=== PATIENT | female | born 1970 | race Two or more races ===

== ENCOUNTER 2022-08-28 23:15 | Emergency (ER) | payer OTHER ==
[~2022-08-28] VITALS: Ht 152.4 cm; Wt 60.8 kg
[2022-08-29] MEDS ORDERED: ALBUTEROL2.5 MG/3 M IH (02:18)
[2022-08-29] MEDS ORDERED: ZYNCOF 20-400120 ML PO (02:18)
[2022-08-29] MEDS ORDERED: ORASEP SPRAY30 ML MM (02:19)
== END 2022-08-29 02:24 ==
LOC: ER 23:15
DX: R06.02 Shortness of breath (principal)